=== PATIENT | female | born 1965 | race Caucasian/White ===

== ENCOUNTER 2016-08-30 22:04 | Emergency (ER) | payer BC ==
[2016-08-30 22:13] VITALS: BP 168/89
--- NOTE | 2016-08-30 22:58 | EDM.PDOC ---
ED HPI GENERAL MEDICAL PROBLEM - General Time Seen by Provider: 08/30/16 22:30 - Related Data Allergies Allergy/AdvReac Type Severity Reaction Status Date / Time mold Allergy Cough Uncoded 08/10/15 06:49 Home Meds: Home Meds . [No Known Home Meds] 08/30/16 [History] Past Medical History - Past Surgical History HEENT Surgical History: Reports: Myringotomy w tube(s), Tonsillectomy Female Surgical History: Reports: section Social & Family History - Tobacco Use Smoking Status *Q: Never Smoker - Caffeine Use Caffeine Use: Reports: Coffee, Soda, Tea - Recreational Drug Use Recreational Drug Use: No ED ROS GENERAL - Review of Systems Review Of Systems: See Below Constitutional: Denies: fever, chills, diaphoresis HEENT: Reports: No symptoms Respiratory: Denies: No Symptoms, Shortness of Breath, Pleuritic Chest Pain Cardiovascular: Denies: Chest pain GI/Abdominal: Reports: Abdominal pain (Lower pelvic discomfort as described above). Denies: Diarrhea, Decreased appetite, Nausea, Vomiting Musculoskeletal: Reports: back pain (Very mild low back discomfort) Skin: Reports: no symptoms Neurological: Denies: Numbness, Tingling ED EXAM, RENAL/ - Physical Exam Exam: See Below General Appearance: alert, no apparent distress Throat/Mouth: Normal inspection, Normal oropharynx Head: atraumatic. No: facial swelling Neck: supple, full range of motion Respiratory/Chest: no respiratory distress, lungs clear, normal breath sounds Cardiovascular: regular rate, rhythm GI/Abdominal: Soft, Non-Tender, No Distention, Other (Lower abdomen, pelvis nontender) (Female) Exam: Normal speculum exam. No: Adnexal mass, Adnexal tenderness, Uterine tenderness Back Exam: No: CVA tenderness (L), CVA tenderness (R) Extremities: normal inspection, normal range of motion. No: pedal edema, leg pain Neurological: alert, oriented, no motor/sensory deficits Skin Exam: Warm, Dry, Normal color Course - Vital Signs Last Recorded V/S: Last Vital Signs Temp 98.1 F 08/30/16 22:12 Pulse 90 08/30/16 22:12 Resp 20 08/30/16 22:12 BP 168/89 H 08/30/16 22:12 Pulse Ox 98 08/30/16 22:12 - Orders/Labs/Meds Labs: Laboratory Tests 08/30/16 08/30/16 08/30/16 Range/Units 22:43 23:00 23:00 WBC 10.53 H (3.98-10.04) K/mm3 RBC 4.26 (3.98-5.22) M/mm3 Hgb 12.1 (11.2-15.7) gm/L Hct 35.9 (34.1-44.9) % MCV 84.3 (79.4-94.8) fl MCH 28.4 (25.6-32.2) pg MCHC 33.7 (32.2-35.5) g/dl RDW Std Deviation 37.5 (36.4-46.3) fL Plt Count 289 (182-369) K/mm3 MPV 8.7 L (9.4-12.3) fl Neut % (Auto) 68.6 (34.0-71.1) % Lymph % (Auto) 19.0 L (19.3-51.7) % [place] % (Auto) 9.2 (4.7-12.5) % Eos % (Auto) 2.6 (0.7-5.8) Baso % (Auto) 0.4 (0.1-1.2) % Neut # (Auto) 7.23 H (1.56-6.13) K/mm3 Lymph # (Auto) 2.00 (1.18-3.74) K/mm3 [place] # (Auto) 0.97 H (0.24-0.36) K/mm3 Eos # (Auto) 0.27 (0.04-0.36) K/mm3 Baso # (Auto) 0.04 (0.01-0.08) K/mm3 Sodium 140 (136-145) mEq/L Potassium 3.9 (3.5-5.1) mEq/L Chloride 105 (98-107) mEq/L Carbon Dioxide 25 (21-32) mEq/L Anion Gap 13.9 (5-15) BUN 18 (7-18) mg/dL Creatinine 1.0 (0.55-1.02) mg/dL Est Cr Clr Drug Dosing 56.18 mL/min Estimated GFR (MDRD) 58 (>60) mL/min BUN/Creatinine Ratio 18.0 (14-18) Glucose 111 H (74-106) mg/dL Calcium 9.0 (8.5-10.1) mg/dL Total Bilirubin 0.3 (0.2-1.0) mg/dL AST 25 (15-37) U/L ALT 44 (14-59) U/L Alkaline Phosphatase 153 H (46-116) U/L Total Protein 7.1 (6.4-8.2) g/dl Albumin 3.6 (3.4-5.0) g/dl Globulin 3.5 gm/dL Albumin/Globulin Ratio 1.0 (1-2) Urine Color Yellow (Yellow) Urine Appearance Clear (Clear) Urine pH 7.0 (5.0-8.0) Ur Specific [place] 1.020 (1.005-1.030) Urine Protein Negative (Negative) Urine Glucose (UA) Negative (Negative) Urine Ketones Negative (Negative) Urine Occult Blood Trace-lysed H (Negative) Urine Nitrite Negative (Negative) Urine Bilirubin Negative (Negative) Urine Urobilinogen 0.2 (0.2-1.0) Ur Leukocyte Esterase Trace H (Negative) Urine RBC 0-5 (0-5) /hpf Urine WBC 0-5 (0-5) /hpf Ur Epithelial Cells 0-5 (0-5) /hpf Urine Bacteria Few (FEW) /hpf Urine Mucus Few (FEW) /hpf - Re-Assessments/Exams Free Text/Narrative Re-Assessment/Exam: 08/30/16 23:51. Labs are back and they do look fine, old focal mass or tenderness palpable on pelvic exam as documented. I have written an order for followup elective pelvic ultrasound. Discharge instructions as documented Departure - Departure Time of Disposition: 23:50 Disposition: Home, Self-Care 01 Clinical Impression: Pelvic pain - Discharge Information Instructions: Pelvic Pain, Female, [id number] Referrals: PCP,None [Primary Care Provider] - Forms: ED Department Discharge Additional Instructions: An order has been written for followup pelvic ultrasound, that will be sent over to radiology. Radiology will call you in the morning to set up a time with you have that done. I do recommend following up with one of our OB Pilot Control Operator practitioners for followup repeat pelvic exam, Pap smear as discussed. Call [phone] for appointment. Follow up results of your pelvic ultrasound can be obtained at that time. Tylenol alternating with ibuprofen as needed for discomfort, rest, increase activity slowly as tolerated, return to ED if symptoms worsening in any way ED HPI RENAL/ - General Chief Complaint: Abdominal Pain Stated Complaint: PELVIC PAIN Time Seen by Provider: 08/30/16 22:19 Source of Information: Reports: Patient, RN notes reviewed - History of Present Illness INITIAL COMMENTS - FREE TEXT/NARRATIVE: 51-year-old female comes in with pelvic discomfort. This first started last evening. This became worse this past morning and throughout the day today. The pain is most noticeable when standing or walking. This then becomes a sharp severe pain and discomfort in the pelvic region without radiation. He feels like there is a heavy weight in her pelvis. This does not radiate down into either leg. She's had no voiding symptomatology. No nausea vomiting fever chills or unusual dizziness. No bleeding or unusual discharge. Her last menstrual period about 3 years ago. He states she did strain her back to leaning out of a window last evening adjusting something outside the window. She does have some slight lower back discomfort but that seems to be "unrelated ". If she lies flat than there is very minimal if any discomfort present. She has not seen an OB taxation agent for many years and therefore has not had a pelvic exam or Pap smear for many years. - Related Data Allergies/ADRs: Allergies Allergy/AdvReac Type Severity Reaction Status Date / Time mold Allergy Cough Uncoded 08/10/15 06:49 Home Meds: Home Meds . [No Known Home Meds] 08/30/16 [History] Departure - Departure Time of Disposition: 23:50 Disposition: Home, Self-Care 01 Condition: fair Clinical Impression: Pelvic pain Instructions: Pelvic Pain, Female, [id number] Referrals: PCP,None [Primary Care Provider] - Forms: ED Department Discharge Additional Instructions: An order has been written for followup pelvic ultrasound, that will be sent over to radiology. Radiology will call you in the morning to set up a time with you have that done. I do recommend following up with one of our OB Pilot Control Operator practitioners for followup repeat pelvic exam, Pap smear as discussed. Call [phone] for appointment. Follow up results of your pelvic ultrasound can be obtained at that time. Tylenol alternating with ibuprofen as needed for discomfort, rest, increase activity slowly as tolerated, return to ED if symptoms worsening in any way
== END 2016-08-31 00:05 | disposition home or self-care (01) ==
LOC: JD.ED 22:04
DX: R10.2 Pelvic and perineal pain (principal); Z98.890 Other specified postprocedural states
CPT/HCPCS: 36415; 80053; 81001; 85025; 99282; 99284

== ENCOUNTER 2017-01-25 08:14 | Day surgery (SDC) | payer BC ==
--- NOTE | 2017-01-18 06:53 | PCM.PREANE ---
Preanesthetic Assessment - Anesthesia/Transfusion/Family Hx Anesthesia History: Prior Anesthesia Without Reaction Family History of Anesthesia Reaction: No Transfusion History: No Prior Transfusion(s) Intubation History: Unknown - Review of Systems General: No Symptoms Pulmonary: No Symptoms Cardiovascular: No Symptoms Gastrointestinal: Other (Heart burn on occasion will take her omeprazole. ) Neurological: No Symptoms Other: Reports: None (Allergie symptoms, post nasal drainage. ) - Physical Assessment NPO Status Date: 01/17/17 NPO Status Time: 21:30 Pulse: 72 O2 Sat by Pulse Oximetry: 97 Respiratory Rate: 16 Blood Pressure: 137/89 Temperature: 36.7 C Height: 1.63 m Weight: 63.503 kg ASA Class: 2 Mental Status: Alert & Oriented x3 Airway Class: Mallampati = 2 Dentition: Reports: Normal Dentition Thyro-Mental Finger Breadths: 3 Mouth Opening Finger Breadths: 3 ROM/Head Extension: Full Lungs: Clear to Auscultation, Normal Respiratory Effort Cardiovascular: Regular Rate, Regular Rhythm - Lab Values: Laboratory Last Values MRSA (PCR) Negative 01/09/17 10:45 - Imaging/EKG Impressions: EKG reviewed: SR 74bpm - Allergies Allergies/Adverse Reactions: Allergies Allergy/AdvReac Type Severity Reaction Status Date / Time mold Allergy Cough Uncoded 01/17/17 15:29 - Acknowledgements Anesthesia Type Planned: General Anesthesia Pt an Appropriate Candidate for the Planned Anesthesia: Yes Alternatives and Risks of Anesthesia Discussed w Pt/Guardian: Yes Pt/Guardian Understands and Agrees with Anesthesia Plan: Yes PreAnesthesia Questionnaire HEENT History: Reports: Otitis Media, Other (See Below) Other HEENT History: eustachian tube dysfunction Cardiovascular History: Reports: None, Other (See Below) Other Cardiovascular History: precordial pain Respiratory History: Reports: None Gastrointestinal History: Reports: GERD Genitourinary History: Reports: None IMPORT COORDINATOR History: Reports: None Musculoskeletal History: Reports: Other (See Below) Other Musculoskeletal History: joint pain, epicondylitis Neurological History: Reports: None Psychiatric History: Reports: None Endocrine/Metabolic History: Reports: None Hematologic History: Reports: None Immunologic History: Reports: None Oncologic (Cancer) History: Reports: None Dermatologic History: Reports: None - Past Surgical History Head Surgeries/Procedures: Reports: None HEENT Surgical History: Reports: Myringotomy w Tube(s), Tonsillectomy Cardiovascular Surgical History: Reports: None Respiratory Surgical History: Reports: None GI Surgical History: Reports: None Female Surgical History: Reports: Section Male Surgical History: Reports: None Endocrine Surgical History: Reports: None Neurological Surgical History: Reports: None Oncologic Surgical History: Reports: None Dermatological Surgical History: Reports: None - SUBSTANCE USE Smoking Status *Q: Never Smoker Recreational Drug Use History: No - HOME MEDS Home Medications: Home Meds Aspirin 325 mg PO DAILY PRN 01/17/17 [History] Aspirin/Acetaminophen/Caffeine [Migraine Relief Caplet] 1 - 2 tab PO Q6H PRN [History] Cetirizine [ZyrTEC] 10 mg PO DAILY PRN 01/17/17 [History] Docusate Sodium [Colace] 200 mg PO DAILY PRN 01/17/17 [History] Fluticasone Propionate [Flonase Allergy Relief] 1 spray NASBOTH BID PRN [History] Omeprazole [Omeprazole] 20 mg PO DAILY 01/17/17 [History] diphenhydrAMINE [Benadryl] 25 mg PO DAILY PRN 01/17/17 [History] - CURRENT (IN HOUSE) MEDS Current Meds: Current Medications Lactated Ringer's (Ringers, Lactated) 1,000 mls @ 125 mls/hr IV ASDIRECTED VIV Lidocaine/Sodium Bicarbonate (Buffered Lidocaine 1% In Ns 8.4%) 0.25 ml IV ONETIME PRN PRN Reason: Prior to IV Start Sodium Chloride (Saline Flush) 10 ml FLUSH ASDIRECTED PRN PRN Reason: Keep Vein Open Discontinued Medications Bupivacaine HCl (Marcaine 0.25%) Confirm Administered Dose 30 ml .ROUTE .STK- MED ONE Stop: 01/18/17 06:28 Cefazolin Sodium (Ancef) Confirm Administered Dose 2 gm .ROUTE .STK-MED ONE Stop: 01/18/17 06:50 Dexamethasone (Dexamethasone) Confirm Administered Dose 20 mg .ROUTE .STK-MED ONE Stop: 01/18/17 06:50 Epinephrine HCl (Adrenalin 1:1000) Confirm Administered Dose 30 mg .ROUTE .STK- MED ONE Stop: 01/18/17 06:28 Famotidine (Pepcid) Confirm Administered Dose 20 mg .ROUTE .STK-MED ONE Stop: 01/18/17 06:34 Fentanyl (Sublimaze) Confirm Administered Dose 250 mcg .ROUTE .STK-MED ONE Stop: 01/18/17 06:51 Lidocaine HCl (Xylocaine-Mpf 1%) Confirm Administered Dose 4 mls @ as directed .ROUTE .STK-MED ONE Stop: 01/18/17 06:50 Midazolam HCl (Versed 1 Mg/Ml) Confirm Administered Dose 2 mg .ROUTE .STK-MED ONE Stop: 01/18/17 06:50 Ondansetron HCl (Zofran) Confirm Administered Dose 4 mg .ROUTE .STK-MED ONE Stop: 01/18/17 06:50 Propofol (Diprivan 20 Ml) Confirm Administered Dose 200 mg .ROUTE .STK-MED ONE Stop: 01/18/17 06:50 Rocuronium [place] (Zemuron) Confirm Administered Dose 50 mg .ROUTE .STK-MED ONE Stop: 01/18/17 06:50
[~2017-01-25 08:14] MED LIST: Bupivacaine 0.25% 30 ML SDV ONE; Dexamethasone 4 MG/ML 5 ML MDV ONE; EPINEPHrine 1 MG/ML 30 ML MDV ONE; Famotidine 20 MG/2 ML SDV ONE; Lactated Ringers 1,000 ML IV SCH; Lidocaine 1% 0 ML ONE; Lidocaine 1%/Sod Bicarbonate in NS 8.4% 1 ML Syringe IV PRN; Lidocaine 1%/Sod Bicarbonate in NS 8.4% 1 ML Syringe PRN; Midazolam 1 MG/ML 2 ML SDV ONE; Ondansetron 4 MG/2 ML SDV ONE; Propofol 200 MG/20 ML SDV ONE; Rocuronium 50 MG/5 ML Vial ONE; Sodium Chloride 0.9% 10 ML Syringe FLUSH PRN; ceFAZolin 1 GM Vial ONE; fentaNYL 250 MCG/5 ML SDV ONE
[2017-01-25] MEDS: Lactated Ringers 1,000 ML IV SCH ×2 (08:35→11:33)
[2017-01-25] MEDS ORDERED: EPINEPHrine 1 MG/ML 30 ML MDV ONE (08:38)
[2017-01-25] MEDS ORDERED: Bupivacaine 0.25% 30 ML SDV ONE (08:38)
--- NOTE | 2017-01-25 08:58 | PCM.PREANE ---
Preanesthetic Assessment - Procedure Proposed Procedure: Left knee video arthroscopy with ACL repair. - Anesthesia/Transfusion/Family Hx Anesthesia History: Prior Anesthesia Without Reaction Family History of Anesthesia Reaction: No Transfusion History: No Prior Transfusion(s) Intubation History: Unknown - Review of Systems General: No Symptoms Pulmonary: No Symptoms Cardiovascular: No Symptoms Gastrointestinal: Other (Patient states she has occasional GERD.) Neurological: No Symptoms Other: Reports: None (Allergie symptoms, post nasal drainage. ) - Physical Assessment NPO Status Date: 01/24/17 NPO Status Time: 22:30 Pulse: 72 O2 Sat by Pulse Oximetry: 97 Respiratory Rate: 16 Blood Pressure: 142/95 Temperature: 36.3 C Vital Signs: Last Vital Signs Temp 36.7 C 01/18/17 07:05 Pulse 72 01/18/17 07:05 Resp 16 01/18/17 07:05 BP 137/89 01/18/17 07:05 Pulse Ox 97 01/18/17 07:05 Height: 1.63 m Weight: 63.503 kg ASA Class: 2 Mental Status: Alert & Oriented x3 Airway Class: Mallampati = 2 Dentition: Reports: Normal Dentition Thyro-Mental Finger Breadths: 3 Mouth Opening Finger Breadths: 3 ROM/Head Extension: Full Lungs: Clear to Auscultation, Normal Respiratory Effort Cardiovascular: Regular Rate, Regular Rhythm - Lab Values: Laboratory Last Values MRSA (PCR) Negative 01/09/17 10:45 - Allergies Allergies/Adverse Reactions: Allergies Allergy/AdvReac Type Severity Reaction Status Date / Time mold AdvReac Cough Uncoded 01/24/17 07:18 - Anesthesia Plan Pre-Op Medication Ordered: None - Acknowledgements Anesthesia Type Planned: General Anesthesia Pt an Appropriate Candidate for the Planned Anesthesia: Yes Alternatives and Risks of Anesthesia Discussed w Pt/Guardian: Yes Pt/Guardian Understands and Agrees with Anesthesia Plan: Yes PreAnesthesia Questionnaire HEENT History: Reports: Otitis Media, Other (See Below) Other HEENT History: eustachian tube dysfunction Cardiovascular History: Reports: None, Other (See Below) Other Cardiovascular History: precordial pain Respiratory History: Reports: None Gastrointestinal History: Reports: GERD Genitourinary History: Reports: None VENEER DEPARTMENT MANAGER History: Reports: None Musculoskeletal History: Reports: Other (See Below) Other Musculoskeletal History: joint pain, epicondylitis Neurological History: Reports: None Psychiatric History: Reports: None Endocrine/Metabolic History: Reports: None Hematologic History: Reports: None Immunologic History: Reports: None Oncologic (Cancer) History: Reports: None Dermatologic History: Reports: None - Past Surgical History Head Surgeries/Procedures: Reports: None HEENT Surgical History: Reports: Myringotomy w Tube(s), Tonsillectomy Cardiovascular Surgical History: Reports: None Respiratory Surgical History: Reports: None GI Surgical History: Reports: None Female Surgical History: Reports: Section Male Surgical History: Reports: None Endocrine Surgical History: Reports: None Neurological Surgical History: Reports: None Oncologic Surgical History: Reports: None Dermatological Surgical History: Reports: None - SUBSTANCE USE Smoking Status *Q: Never Smoker Recreational Drug Use History: No - HOME MEDS Home Medications: Home Meds Aspirin 325 mg PO DAILY PRN 01/17/17 [History] Aspirin/Acetaminophen/Caffeine [Migraine Relief Caplet] 1 - 2 tab PO Q6H PRN [History] Cetirizine [ZyrTEC] 10 mg PO DAILY PRN 01/17/17 [History] Docusate Sodium [Colace] 200 mg PO DAILY PRN 01/17/17 [History] Fluticasone Propionate [Flonase Allergy Relief] 1 spray NASBOTH BID PRN [History] Omeprazole [Omeprazole] 20 mg PO DAILY 01/17/17 [History] diphenhydrAMINE [Benadryl] 25 mg PO DAILY PRN 01/17/17 [History] Acetaminophen/HYDROcodone [[place] 325-5 MG] 1 - 2 tab PO Q6H PRN #40 tablet 01/25 [Rx] Cyclobenzaprine [Flexeril] 10 mg PO Q8H PRN #40 tablet 01/25/17 [Rx] Enoxaparin Sodium [Lovenox] 40 mg SQ DAILY #14 ml 01/26/17 [Rx] - CURRENT (IN HOUSE) MEDS Current Meds: Current Medications Lactated Ringer's (Ringers, Lactated) 1,000 mls @ 125 mls/hr IV ASDIRECTED VIV Stop: 01/25/17 23:00 Last Admin: 01/25/17 08:35 Dose: 125 mls/hr Lidocaine/Sodium Bicarbonate (Buffered Lidocaine 1% In Ns 8.4%) 0.25 ml .XX ONETIME PRN PRN Reason: Prior to IV Start Stop: 01/25/17 18:00 Last Admin: 01/25/17 08:34 Dose: 0.25 ml Sodium Chloride (Saline Flush) 10 ml FLUSH ASDIRECTED PRN PRN Reason: Keep Vein Open Stop: 01/25/17 18:00 Discontinued Medications Bupivacaine HCl (Marcaine 0.25%) Confirm Administered Dose 30 ml .ROUTE .STK- MED ONE Stop: 01/18/17 06:28 Cefazolin Sodium (Ancef) Confirm Administered Dose 2 gm .ROUTE .STK-MED ONE Stop: 01/18/17 06:50 Dexamethasone (Dexamethasone) Confirm Administered Dose 20 mg .ROUTE .STK-MED ONE Stop: 01/18/17 06:50 Epinephrine HCl (Adrenalin 1:1000) Confirm Administered Dose 30 mg .ROUTE .STK- MED ONE Stop: 01/18/17 06:28 Famotidine (Pepcid) Confirm Administered Dose 20 mg .ROUTE .STK-MED ONE Stop: 01/18/17 06:34 Fentanyl (Sublimaze) Confirm Administered Dose 250 mcg .ROUTE .STK-MED ONE Stop: 01/18/17 06:51 Lactated Ringer's (Ringers, Lactated) 1,000 mls @ 125 mls/hr IV ASDIRECTED [facility] Last Admin: 01/18/17 06:40 Dose: 125 mls/hr Lidocaine HCl (Xylocaine-Mpf 1%) Confirm Administered Dose 4 mls @ as directed .ROUTE .STK-MED ONE Stop: 01/18/17 06:50 Lidocaine/Sodium Bicarbonate (Buffered Lidocaine 1% In Ns 8.4%) 0.25 ml IV ONETIME PRN PRN Reason: Prior to IV Start Last Admin: 01/18/17 06:40 Dose: 0.25 ml Midazolam HCl (Versed 1 Mg/Ml) Confirm Administered Dose 2 mg .ROUTE .STK-MED ONE Stop: 01/18/17 06:50 Ondansetron HCl (Zofran) Confirm Administered Dose 4 mg .ROUTE .STK-MED ONE Stop: 01/18/17 06:50 Propofol (Diprivan 20 Ml) Confirm Administered Dose 200 mg .ROUTE .STK-MED ONE Stop: 01/18/17 06:50 Rocuronium [place] (Zemuron) Confirm Administered Dose 50 mg .ROUTE .STK-MED ONE Stop: 01/18/17 06:50 Sodium Chloride (Saline Flush) 10 ml FLUSH ASDIRECTED PRN PRN Reason: Keep Vein Open
[2017-01-25] MEDS ORDERED: Dexamethasone 4 MG/ML SDV ONE (09:10)
[2017-01-25] MEDS ORDERED: fentaNYL 250 MCG/5 ML SDV ONE (09:10)
[2017-01-25] MEDS ORDERED: Lidocaine 1% 4 ML ONE (09:10)
[2017-01-25] MEDS ORDERED: ceFAZolin 1 GM Vial ONE (09:10)
[2017-01-25] MEDS ORDERED: Ondansetron 4 MG/2 ML SDV ONE (09:10)
[2017-01-25] MEDS ORDERED: Propofol 200 MG/20 ML SDV ONE (09:10)
[2017-01-25] MEDS ORDERED: Midazolam 1 MG/ML 2 ML SDV ONE (09:10)
[2017-01-25] MEDS ORDERED: Lactated Ringers 1,000 ML ONE (09:30)
[2017-01-25] MEDS ORDERED: Phenylephrine 1% 10 MG/ML SDV ONE (09:46)
[2017-01-25] MEDS ORDERED: ePHEDrine 50 MG/ML SDV ONE (09:53)
[2017-01-25] MEDS ORDERED: diphenhydrAMINE 50 MG/ML SDV IVPUSH PRN (11:09)
[2017-01-25] MEDS ORDERED: fentaNYL 100 MCG/2 ML SDV IVPUSH PRN (11:09)
[2017-01-25] MEDS ORDERED: HYDROmorphone 0.5 MG/0.5 ML Syringe IVPUSH PRN (11:09)
[2017-01-25] MEDS ORDERED: Ondansetron 4 MG/2 ML SDV IVPUSH PRN (11:09)
--- NOTE | 2017-01-25 11:09 | PCM.OPNOTE ---
- General Post-Op/Procedure Note Date of Surgery/Procedure: 01/25/17 Operative Procedure(s): left knee video arthroscoy with bucket handle medial meniscus repair and ACL allograft reconstruction Pre Op Diagnosis: left knee acl insufficiency Post-Op Diagnosis: same with bucket handle medial meniscus tear Anesthesia Technique: General LMA, Local Primary Surgeon: Chun Islas Anesthesia Provider: Keerthi Shelotn Film Masker: Shonna Jain Film Masker: Hiwot Ross EBBrennan in mLs: 5 Complications: None Condition: Good
--- NOTE | 2017-01-25 11:10 | PCM.POSTAN ---
POST ANESTHESIA ASSESSMENT - MENTAL STATUS Mental Status: Alert, Oriented - VITAL SIGNS Pulse Rate: 70 SaO2: 99 Resp Rate: 15 Blood Pressure: 139/84 Temperature: 36.4 C - RESPIRATORY Respiratory Status: Respiratory Rate WNL, Airway Patent, O2 Saturation Stable - CARDIOVASCULAR CV Status: Pulse Rate WNL, Blood Pressure Stable - GASTROINTESTINAL GI Status: No Symptoms - PAIN Pain Score: 4 (50mcg fentanyl administered) - POST OP HYDRATION Hydration Status: Adequate & Stable
[2017-01-25] MEDS ORDERED: Ropivacaine 0.5% 5 MG/ML 30 ML SDV ONE (11:19)
[2017-01-25] MEDS ORDERED: EPINEPHrine 1 MG/ML SDV ONE (11:20)
[2017-01-25] MEDS ORDERED: Lidocaine 1% 2 ML ONE ×2 (11:37)
[2017-01-25 14:12] VITALS: BP 146/77
--- NOTE | 2017-01-25 20:30 | PCM.SN ---
- Free Text/Narrative Note: Anesthesia Note: Date: 01/26/2017 Time Out: 1139 Start: 1139 Stop: 1205 Procedure: Left Femoral Nerve Block Under US Guidance for post operative pain control requested by Dr. Islas. Patient chart reviewed, allergies noted, and risk/benefits discussed with consent obtained. Patient placed in supine position, monitors/alarms on, O2 placed via nasal cannula at 2LPM. IV sedation titrated to effect. HR: 75 RR: 16 BP: 133/81 SPo2: 95% Sterile technique noted with sterile gloves, cap, mask, and sterile drapes. Left groin area prepped with chloroprep times two. Femoral artery, Femoral vein, and Femoral nerve branch visualized under US guidance (sterile sleeve) noted. Area localized with 1% lidocaine. Stimiplex 21 gauge 4 inch needle advanced under US guidance with a positive quadricep and knee stimulated at 0.8mV. Stimulation still noted with voltage decreased to 0.3mV. Stimulation ceased with 1ml of normal saline injected. Ropivacaine 0.5% with 1:200,000 epinephrine injected incrementally with negative aspirations for a total volume of 20ml's. Patient stated after block, pain in knee was subsiding. Tolerated procedure well , no apparent complications noted.
--- NOTE | 2017-01-26 10:32 | CR ---
Left knee: Single fluoroscopic spot view of the left knee was obtained utilizing C-arm device. Comparison: Previous left knee MRI dated 11/15/16. Study shows ACL repair. Fluoroscopy time given as 1.9 seconds. Impression: 1. Incidental findings. Diagnostic code #2
--- NOTE | 2017-01-30 18:33 | OR ---
DATE OF OPERATION: 01/25/2017 SURGEON: Chun Islas MD OPERATION PERFORMED: Left knee video arthroscopy with bucket-handle medial meniscus repair and ACL allograft reconstruction. PREOPERATIVE DIAGNOSIS: Left knee ACL insufficiency. POSTOPERATIVE DIAGNOSIS: Left knee ACL insufficiency with bucket-handle medial meniscus tear. ANESTHESIA: General LMA with local. ANESTHESIA PROVIDER: Violetta Pond CRNA. ASSISTANTS: Shonna Jain PA-C and Hiwot Ross LPN. ESTIMATED BLOOD LOSS: 5 mL. COMPLICATIONS: None. CONDITION: Stable. DESCRIPTION OF PROCEDURE: The patient was identified in the preoperative holding area. Proper site was marked and identified by the surgeon. The patient was taken back to the operating theater where after adequate anesthesia, the patient's right lower extremity was placed in a well leg miller, and the left lower extremity was placed in a C-clamp miller after a nonsterile tourniquet was applied. The foot of the bed was then lowered. The left knee was then sterilely prepped and draped in the usual sterile fashion. OR time-out was performed. The patient received 2 g IV Ancef. At this time, the left lower extremity was exsanguinated. Tourniquet was insufflated to 250 mmHg. Standard anterolateral portal incision was created. The scope trocar was introduced to the knee. The patella showed no signs of retropatellar chondromalacia or trochlear chondromalacia. There were no loose foreign bodies in the mediolateral gutter. Attention was turned to the medial compartment. At this time, an anteromedial portal incision was made with the use of a spinal needle. The medial meniscus was then probed and was found to have a bucket-handle meniscus tear of the red- white zone from roughly the anterior third to the posterior third. At this time, it was decided that secondary to the area of the tear as well as the ACL insufficiency, it was best if we would try to repair this at this time. At this time, the meniscal rasp was used to roughen the surface and then 4 [employer] all-inside meniscal repair anchors were then used. It was found to have adequate watertight repair of the medial meniscus with christian of the white- red zone. At this time, it was found to be sufficiently secured. Attention was then turned to the notch. There was noted to be deficient ACL on the notch off the femoral side. Attention was turned to the lateral compartment. There were no signs of chondromalacia or meniscus tear of the lateral compartment. At this time, the allograft tibialis anterior tendon was opened. On the back table, Shonna Jain PA-C and Hiwot Ross LPN did prepare this and at this time, it was measured for a 9.5 mm graft. While this was being done on the back table, the notch was prepared for the graft. All thick old fibers of the ACL were removed. The guide for the tibial tunnel was then placed. An incision was made. The tibial guide was set at 55 degrees. Guide pin was then placed up through the center of the old ACL footprint. A 10 mm drill was then used into the old ACL footprint. Attention was then turned to the femoral side on the lateral femoral condyle near the posterior third just 3 mm roughly anterior to the posterior wall. A 9.5 mm flip cutter was placed. The flip cutter was brought back to roughly 20 mm. At this time, the suture was shuttled through the drill hole for the flip cutter into the femoral notch. The suture was then brought out through the tibial tunnel. After the graft was prepared, the graft was shuttled with the EndoButton first up through the tibia into the femoral side and then it was flipped. C-arm fluoroscopy confirmed that it was flipped on the femur with no soft tissue interposition. Graft was then shuttled up into the femoral tunnel. It was roughly seated in the femoral 20 mm. Tension was held on the graft as it was brought through a cycled range of motion for 20 cycles. There was found to be no impingement. The patient had full flexion and extension with no impingement. At this time, a drill hole was drilled for 4.5 mm [place] screw with a washer. This was then placed and the tibial-sided sutures were tied over the post and washer and this was then tightened down. The patient had negative anterior drawer under direct visualization and exam under anesthesia. At this time, excess saline was drained from the knee. 2-0 Vicryl was used subcutaneously, and 3-0 nylon simple suture was used for closure of the skin. The patient was placed in a sterile soft dressing and placed locked in extension in a hinged knee brace. The patient tolerated the procedure well and sent to PACU in stable condition. MMODAL /[id number]
== END 2017-01-25 14:00 | disposition home or self-care (01) ==
LOC: JD.SDS 08:14
PROVIDERS: ATTEND Orthopaedic Surgery
DX: S83.212A Bucket-handle tear of medial meniscus, current injury, left knee, initial encounter (principal); S83.512A Sprain of anterior cruciate ligament of left knee, initial encounter; K21.9 Gastro-esophageal reflux disease without esophagitis; H69.83 Other specified disorders of Eustachian tube, bilateral; Z79.899 Other long term (current) drug therapy; Z98.890 Other specified postprocedural states; Z90.89 Acquired absence of other organs; Z91.048 Other nonmedicinal substance allergy status
CPT/HCPCS: 29881; 29888; 76000; 87641; C1713; C1762; C1776; J0171; J0690; J1100; J1170; J2250; J2370; J2405; J2795; J3010; J3490; J7120; 01400; 64450; J2704

== ENCOUNTER 2017-06-21 09:43 | Day surgery (SDC) | payer BC ==
[~2017-06-21 09:43] MED LIST changes: -Bupivacaine 0.25% 30 ML SDV ONE; -Dexamethasone 4 MG/ML 5 ML MDV ONE; -EPINEPHrine 1 MG/ML 30 ML MDV ONE; -Famotidine 20 MG/2 ML SDV ONE; -Lidocaine 1% 0 ML ONE; +Lidocaine 1%/Sod Bicarbonate in NS 8.4% 1 ML Syringe IDERM PRN; -Lidocaine 1%/Sod Bicarbonate in NS 8.4% 1 ML Syringe IV PRN; -Lidocaine 1%/Sod Bicarbonate in NS 8.4% 1 ML Syringe PRN; -Midazolam 1 MG/ML 2 ML SDV ONE; -Ondansetron 4 MG/2 ML SDV ONE; -Propofol 200 MG/20 ML SDV ONE; -Rocuronium 50 MG/5 ML Vial ONE; -ceFAZolin 1 GM Vial ONE; -fentaNYL 250 MCG/5 ML SDV ONE
[2017-06-21] MEDS ORDERED: Propofol 200 MG/20 ML SDV ONE (10:01)
[2017-06-21] MEDS ORDERED: Midazolam 1 MG/ML 2 ML SDV ONE (10:01)
[2017-06-21] MEDS ORDERED: fentaNYL 250 MCG/5 ML SDV ONE (10:01)
[2017-06-21] MEDS ORDERED: Lidocaine 1% 4 ML ONE ×2 (10:02→10:19)
[2017-06-21] MEDS ORDERED: Ondansetron 4 MG/2 ML SDV ONE (10:03)
[2017-06-21] MEDS ORDERED: Dexamethasone 4 MG/ML SDV ONE (10:03)
--- NOTE | 2017-06-21 10:08 | PCM.PREANE ---
Preanesthetic Assessment - Anesthesia/Transfusion/Family Hx Anesthesia History: Prior Anesthesia Without Reaction Family History of Anesthesia Reaction: No Transfusion History: No Prior Transfusion(s) Intubation History: Unknown - Review of Systems General: No Symptoms Pulmonary: No Symptoms Cardiovascular: Palpitations (occasionally with anxiety) Gastrointestinal: No Symptoms (GERD) Neurological: No Symptoms Other: Reports: None (History of Factor V leiden), Sinus Problem (Eustachion tube dysfunction), Anxiety - Physical Assessment NPO Status Date: 06/20/17 NPO Status Time: 23:59 Pulse: 73 O2 Sat by Pulse Oximetry: 97 Respiratory Rate: 16 Blood Pressure: 135/88 Temperature: 37.5 C Height: 1.63 m Weight: 61 kg ASA Class: 2 Mental Status: Alert & Oriented x3 Airway Class: Mallampati = 2 Dentition: Reports: Normal Dentition, Caries Thyro-Mental Finger Breadths: 3 Mouth Opening Finger Breadths: 3 ROM/Head Extension: Full Lungs: Clear to Auscultation, Normal Respiratory Effort Cardiovascular: Regular Rate, Regular Rhythm, No Murmurs - Lab Values: Laboratory Last Values MRSA (PCR) Negative 06/05/17 14:45 All lab values reviewed and noted and within acceptable ranges to proceed with scheduled procedure. - Imaging/EKG Impressions: EKG: SR rate=74 CXR: unremarkable - Allergies Allergies/Adverse Reactions: Allergies Allergy/AdvReac Type Severity Reaction Status Date / Time No Known Allergies Allergy Verified 06/20/17 13:53 - Anesthesia Plan Pre-Op Medication Ordered: None - Acknowledgements Anesthesia Type Planned: General Anesthesia Pt an Appropriate Candidate for the Planned Anesthesia: Yes Alternatives and Risks of Anesthesia Discussed w Pt/Guardian: Yes Pt/Guardian Understands and Agrees with Anesthesia Plan: Yes PreAnesthesia Questionnaire HEENT History: Reports: Impaired Vision, Otitis Media, Other (See Below) Other HEENT History: eustachian tube dysfunction Cardiovascular History: Reports: None, Other (See Below) Other Cardiovascular History: precordial pain Respiratory History: Reports: None Gastrointestinal History: Reports: GERD Genitourinary History: Reports: None, Other (See Below) Other Genitourinary History: dysuria SODA CLERK History: Reports: Musculoskeletal History: Reports: Other (See Below) Other Musculoskeletal History: joint pain, epicondylitis Neurological History: Reports: None Psychiatric History: Reports: None Endocrine/Metabolic History: Reports: None Hematologic History: Reports: Other (See Below) Other Hematologic History: factor V Immunologic History: Reports: None Oncologic (Cancer) History: Reports: None Dermatologic History: Reports: None - Past Surgical History Head Surgeries/Procedures: Reports: None HEENT Surgical History: Reports: Myringotomy w Tube(s), Tonsillectomy Cardiovascular Surgical History: Reports: None Respiratory Surgical History: Reports: None GI Surgical History: Reports: None Female Surgical History: Reports: Section Male Surgical History: Reports: None Endocrine Surgical History: Reports: None Neurological Surgical History: Reports: None Musculoskeletal Surgical History: Reports: Arthroscopic Knee, Other (See Below) Other Musculoskeletal Surgeries/Procedures:: left acl repair Oncologic Surgical History: Reports: None Dermatological Surgical History: Reports: None - SUBSTANCE USE Smoking Status *Q: Never Smoker Recreational Drug Use History: No - HOME MEDS Home Medications: Home Meds Aspirin 325 mg PO DAILY PRN 01/17/17 [History] Cetirizine [ZyrTEC] 10 mg PO DAILY PRN 01/17/17 [History] Docusate Sodium [Colace] 100 mg PO DAILY PRN 01/17/17 [History] Fluticasone Propionate [Flonase Allergy Relief] 2 spray NASBOTH BID PRN [History] Omeprazole 20 mg PO DAILY 01/17/17 [History] diphenhydrAMINE [Benadryl] 25 mg PO DAILY PRN 01/17/17 [History] Acetaminophen [Tylenol] 650 mg PO Q4H PRN 06/20/17 [History] Aspirin/Acetaminophen/Caffeine [Migraine Formula Caplet] 1 - 2 tab PO Q6H PRN [History] Sulfamethoxazole/Trimethoprim [Septra DS] 1 tab PO DAILY 06/20/17 [History] Acetaminophen/HYDROcodone [[place] 325-5 MG] 1 - 2 tab PO Q6H PRN #40 tablet 06/21 [Rx] Enoxaparin Sodium [Lovenox] 40 mg SQ DAILY #28 06/21/17 [Rx] - CURRENT (IN HOUSE) MEDS Current Meds: Current Medications Lactated Ringer's (Ringers, Lactated) 1,000 mls @ 125 mls/hr IV ASDIRECTED VIV Stop: 06/21/17 23:00 Lidocaine/Sodium Bicarbonate (Buffered Lidocaine 1% In Ns 8.4%) 0.25 ml IDERM ONETIME PRN PRN Reason: Prior to IV Start Stop: 06/21/17 18:00 Sodium Chloride (Saline Flush) 10 ml FLUSH ASDIRECTED PRN PRN Reason: Keep Vein Open Stop: 06/21/17 18:00 Discontinued Medications Dexamethasone (Dexamethasone) Confirm Administered Dose 4 mg .ROUTE .STK-MED ONE Stop: 06/21/17 10:04 Fentanyl (Sublimaze) Confirm Administered Dose 250 mcg .ROUTE .STK-MED ONE Stop: 06/21/17 10:02 Lidocaine HCl (Xylocaine-Mpf 1%) Confirm Administered Dose 4 mls @ as directed .ROUTE .STK-MED ONE Stop: 06/21/17 10:03 Midazolam HCl (Versed 1 Mg/Ml) Confirm Administered Dose 2 mg .ROUTE .STK-MED ONE Stop: 06/21/17 10:02 Ondansetron HCl (Zofran) Confirm Administered Dose 4 mg .ROUTE .STK-MED ONE Stop: 06/21/17 10:04 Propofol (Diprivan 20 Ml) Confirm Administered Dose 200 mg .ROUTE .STK-MED ONE Stop: 06/21/17 10:02
[2017-06-21] MEDS ORDERED: Ropivacaine 0.5% 5 MG/ML 30 ML SDV ONE (10:19)
[2017-06-21] MEDS ORDERED: EPINEPHrine 1 MG/ML SDV ONE (10:19)
[2017-06-21] MEDS ORDERED: ceFAZolin 1 GM Vial ONE (11:31)
[2017-06-21] MEDS: Bupivacaine 0.25% 30 ML SDV ONE ×2 (11:37→12:24)
[2017-06-21] MEDS ORDERED: Ketorolac 30 MG/ML SDV ONE (12:09)
[2017-06-21] MEDS ORDERED: Ondansetron 4 MG/2 ML SDV IVPUSH PRN (12:16)
[2017-06-21] MEDS ORDERED: Meperidine PF 50 MG/ML Syringe IVPUSH PRN (12:16)
[2017-06-21] MEDS ORDERED: fentaNYL 100 MCG/2 ML SDV IVPUSH PRN (12:16)
[2017-06-21] MEDS ORDERED: diphenhydrAMINE 50 MG/ML SDV IVPUSH PRN (12:16)
--- NOTE | 2017-06-21 12:40 | CR ---
First toe: Eight fluoroscopic spot views were obtained utilizing C-arm device during surgery of the first and second digits. Side of exam is not given. Final film shows osteotomy within the distal first metatarsal with fixation screw in place. Final film also shows wire/pin across the MTP joint of the second digit. Fluoroscopy given as 21.5 seconds. Impression: 1. Findings as noted above. Diagnostic code #2
--- NOTE | 2017-06-21 12:46 | PCM.POSTAN ---
POST ANESTHESIA ASSESSMENT - MENTAL STATUS Mental Status: Alert, Oriented - VITAL SIGNS Pulse Rate: 104 SaO2: 100 Resp Rate: 16 Blood Pressure: 104/62 Temperature: 36.6 C - RESPIRATORY Respiratory Status: Respiratory Rate WNL, Airway Patent, O2 Saturation Stable, Supplemental Oxygen - CARDIOVASCULAR CV Status: Pulse Rate WNL, Blood Pressure Stable - GASTROINTESTINAL GI Status: No Symptoms - PAIN Pain Score: 0 - POST OP HYDRATION Hydration Status: Adequate & Stable
--- NOTE | 2017-06-21 14:00 | PCM.SN ---
- Free Text/Narrative Note: Date: 06/21/17 Time Out: 1040 Start: 1040 Stop: 1055 Procedure: Right Popliteal block under Ultra Sound Guidance for postoperative pain control requested by Dr. Islas. Surgical Procedure: Right first hallux valgus correction with second hammertoe correction and second osteotomy. Chart reviewed, allergies noted, Procedure risk/benefits discussed with patient , consent obtained. Monitors/alarms on and O2 placed via nasal cannula at 2LPM. Patient placed in prone position, time out done. Versed 2mg IV given at 1042. Vital signs stable throughout the procedure. BP: 135/73 HR: 80 RR: 16 SPO2: 97% Right Popliteal fossa and area surrounding cleaned with 3 chloropreps. Under US guidance popliteal artery/vein/common peroneal nerve and tibial nerves located. US probe moved cephalad to the joining of both the peroneal/tibial nerves to the sciatic nerve. 1% lidocaine used to localize: 3mls total. Under US guicance, 4 inch 21 gauge stimiplex needle advanced to nerve bundle. Incremental dosing noted with negative aspiration of 0.5% ropivacaine/1:200,000 epinephrine, total volume = 30mls. Patient tolerated procedure well. Thank you, Mary Hilario CRNA
--- NOTE | 2017-06-21 14:02 | PCM48HPAN ---
Post Anesthesia Note - EVALUATION WITHIN 48HRS OF ANESTHETIC Vital Signs in Normal Range: Yes Patient Participated in Evaluation: Yes Respiratory Function Stable: Yes Airway Patent: Yes Cardiovascular Function Stable: Yes Hydration Status Stable: Yes Pain Control Satisfactory: Yes Nausea and Vomiting Control Satisfactory: Yes Mental Status Recovered: Yes
[2017-06-21 14:58] VITALS: BP 124/79
--- NOTE | 2017-06-25 21:24 | PCM.OPNOTE ---
- General Post-Op/Procedure Note Date of Surgery/Procedure: 06/21/17 Operative Procedure(s): right first distal metatarsal chevron osteotomy with hallux valgus correction and adductor release. right second ray MTP dorsal capsulotomy with second toe extensor lengthening and flexor tenotomy Pre Op Diagnosis: right foot hallux valgus and second toe hammer toe deformity Post-Op Diagnosis: Same Anesthesia Technique: General LMA, Local, Regional Block (popliteal) Primary Surgeon: Chun Islas Anesthesia Provider: Floresita Hilario Director Of Publications: Shonna Jain in mLs: 5 Complications: None Condition: Good
--- NOTE | 2017-06-25 22:24 | OR ---
DATE OF OPERATION: 06/21/2017 SURGEON: Chun Islas MD OPERATION PERFORMED: 1. Right 1st distal metatarsal Chevron osteotomy for hallux valgus correction with adductor release. 2. Right 2nd ray MTP dorsal capsulotomy with 2nd toe extensor lengthening and flexor tenotomy along with 2nd ray pinning. PREOPERATIVE DIAGNOSIS: Right foot hallux valgus and 2nd toe hammertoe deformity. POSTOPERATIVE DIAGNOSIS: Right foot hallux valgus and 2nd toe hammertoe deformity. ANESTHESIA TECHNIQUE: General LMA with local regional popliteal block. ANESTHESIA PROVIDER: Floresita Hilario CRNA. FINGERPRINT CLERK: Shonna Jain PA-C. ESTIMATED BLOOD LOSS: 5 mL. COMPLICATIONS: None. CONDITION: Stable. DESCRIPTION OF PROCEDURE: The patient was identified in the preop holding area. Proper site was marked and identified by the surgeon. The patient was taken back to the operating theater, where after adequate anesthesia, the patient's right lower extremity had a nonsterile tourniquet applied and it was then sterilely prepped and draped in the usual sterile fashion. OR time-out was performed. The patient received 2 g IV Ancef. At this time, right lower extremity was exsanguinated. Tourniquet was insufflated to 250 mmHg. At this time, medial incision was made centered over the 1st MTP joint to the right foot. This was taken down full- thickness all the way to the capsule. The capsule was then elevated both dorsally and plantarly to expose the 1st MTP joint. At this time, the medial eminence was noted to be significantly prominent. At this time, with a tenotomy scissors, an adductor release as well as release of the sesamoids was done on the lateral side. At this time, an eminence resection was done on the medial eminence under direct C-arm fluoroscopy and then the proper site for the Chevron osteotomy distally was marked out. At this time, the distal Chevron osteotomy was completed and the distal portion was moved laterally for correction of the hallux valgus. Once it was found to be in proper position, a K-wire was placed in an antegrade fashion from the metatarsal into the distal portion for a 3-0 cannulated [place] screw. At this time, the near cortex was drilled and the self-tapping self-drilling screw was then placed. This was found to have adequate fixation and compression of the osteotomy site. At this time, under direct C-arm fluoroscopy, there was noted to be adequate correction of the hallux valgus deformity. At this time, the medial capsule was tightened with a [id number]-favn type fashion using 2-0 Ethibond. At this time, attention was turned to the 2nd toe for hammertoe deformity. At this time, longitudinal incision was made on the plantar surface of the proximal phalanx. The flexor tendon was identified, the sheath was opened, and a tenotomy was performed at the flexor tendon. At this time, a dorsal incision was made centered over the 2nd MTP joint. This was taken to the extensor tendon. Extensor tendon was then cut in a lengthening type fashion and a dorsal capsulotomy was performed of the 2nd MTP joint. At this time, the 2-0 Ethibond was used for lengthening of the extensor tendon and this was sutured together. At this time, in a retrograde fashion, a K-wire was placed under direct C-arm fluoroscopy all the way from the distal phalanx into the metatarsal in a down out position to help heal the clawtoe correction. At this time, C-arm fluoroscopy showed adequate restorationist of the hallux valgus angle as well as correction of the 2nd clawtoe. At this time, adequate saline was irrigated through all wounds. A 3-0 Vicryl was used subcutaneously and 4-0 Nylon was used for closure of the skin. The patient was placed in a sterile soft dressing and a posterior slab splint and sent to PACU in stable condition. ANESTHESIA: KAYLEE /[id number]
== END 2017-06-21 14:45 | disposition home or self-care (01) ==
LOC: JD.SDS 09:43
PROVIDERS: ATTEND Orthopaedic Surgery
DX: M20.11 Hallux valgus (acquired), right foot (principal); M20.41 Other hammer toe(s) (acquired), right foot; F41.9 Anxiety disorder, unspecified; Z79.82 Long term (current) use of aspirin; Z79.899 Other long term (current) drug therapy; J30.2 Other seasonal allergic rhinitis
CPT/HCPCS: 28285; 28296; 76000; 87641; C1713; J0171; J0690; J1100; J1885; J2250; J2405; J2795; J3010; J3490; J7120; J2704